=== PATIENT | female | born 1985 | race Two or more races ===

== ENCOUNTER 2016-11-10 10:27 | Inpatient (IN) | payer MEDICAID ==
[~2016-11-10] VITALS: Ht 154.9 cm; Wt 78.0 kg
[2016-11-10] VITALS (10 sets, daily range): BP systolic 93–121; BP diastolic 59–76
[~2016-11-10 10:27] MED LIST: Dexamethasone 4mg/ml vial ONE; Glycopyrrolate 0.2mg/ml 1ml Vial ONE; LR 1000ml ONE; Lidocaine 1% MPF 10mg/ml 5ml ONE; Midazolam 2mg/2ml Inj ONE; NS Irrig 1000ml ONE; Neostigmine 1mg/ml 10ml Inj ONE; Propofol 200mg/20ml IV ONE; Sterile Water Irrig 1000ml IRRIG ONE; Zemuron 50mg/5ml Inj IV ONE; fentaNYL 100 mcg/2 mL IV ONE
[2016-11-10] MEDS ORDERED: NKM (10:43)
[2016-11-10] MEDS ORDERED: DiphenhydrAMINE 50mg/ml Inj IVP ONE (10:45)
[2016-11-10] MEDS ORDERED: Morphine Sulfate 4mg/ml Inj IVP ONE (10:45)
[2016-11-10] MEDS ORDERED: Metoclopramide 10mg/2ml Inj IVP ONE (10:45)
--- NOTE | 2016-11-10 10:55 | Emergency Room Report ---
History of Present Illness General Chief Complaint: Abdominal Pain Source: Patient Present Illness HPI The patient was referred from her private doctor's office. She's been having right flank pain since last night. Constant and 10/10. Radiates to the right lower quadrant. She's been vomiting there Green material. She denies any fevers. Her doctors concerned about possible appendicitis. The patient has not had a period for one year. She is breast-feeding. She's had some loose stool. She denies any dysuria or hematuria. She's never had renal stones before. No URI sy, cough, chest pain, headache. She is worried about dx and also about whether will be able to care for daughter. Allergies: Coded Allergies: No Known Allergies (Unverified , 11/10/16) Patient History Past Medical History: see triage record Social History: Denies: smoking, alcohol use, drug use Social History Narrative Reviewed Nursing Documentation: PMH: Agreed, PSxH: Agreed Nursing Documentation-PMH Past Medical History: No Stated History Review of Systems All Other Systems: negative except mentioned in HPI Physical Exam Vital Signs Date Time Temp Pulse Resp B/P (MAP) Pulse Ox O2 Delivery O2 Flow Rate FiO2 11/10/16 10:37 98.8 82 18 107/73 97 Room Air Sp02 EP Interpretation: reviewed, normal General Appearance: well appearing, no apparent distress, GCS 15 Head: normocephalic Eyes: bilateral eye normal inspection, bilateral eye PERRL ENT: moist mucus membranes Neck: supple Respiratory: lungs clear, normal breath sounds Cardiovascular #1: regular rate, rhythm Cardiovascular #2: 2+ radial (R) Gastrointestinal: normal inspection, normal bowel sounds, no mass, non- distended, no rebound, guarding - RLQ and R flank, tenderness, overweight Musculoskeletal: back normal, gait/station normal, normal range of motion Neurologic: alert, oriented x3, grossly normal Psychiatric: anxious Skin: normal inspection, warm/dry Medical Decision Making Diagnostic Impression: Primary Impression: Acute appendicitis Qualified Codes: K35.89 - Other acute appendicitis Additional Impression: Normal breast feeding ER Course Patient presents with right flank pain. Differential includes gallstone, appendicitis, pyelonephritis, renal stone amongst others. Evaluation will be with labs including urinalysis and test and a CT is been ordered. This will be canceled it sure test is positive we will switch to an ultrasound. The patient will be given Reglan, Benadryl and morphine for pain at the moment. If her test is negative we can give her Toradol. Pain better with hydration and analgesia. Leukocytosis. CT + appendicitis. Calling surgeon. Antibiotics ordered. Admit med/OR Dr. Curran. Call Dr. Lacey for operation. Laboratory Tests Test 11/10/16 11:10 White Blood Count 16.2 K/UL (4.8-10.8) H Red Blood Count 5.16 M/UL (4.20-5.40) Hemoglobin 14.5 G/DL (12.0-16.0) Hematocrit 45.7 % (37.0-47.0) Mean Corpuscular Volume 88 FL (80-99) Mean Corpuscular Hemoglobin 28.1 PG (27.0-31.0) Mean Corpuscular Hemoglobin Concent 31.8 G/DL (32.0-36.0) L Red Cell Distribution Width 11.8 % (11.6-14.8) Platelet Count 364 K/UL (150-450) Mean Platelet Volume 6.3 FL (6.5-10.1) L Neutrophils (%) (Auto) % (45.0-75.0) Lymphocytes (%) (Auto) % (20.0-45.0) Monocytes (%) (Auto) % (1.0-10.0) Eosinophils (%) (Auto) % (0.0-3.0) Basophils (%) (Auto) % (0.0-2.0) Differential Total Cells Counted 100 Neutrophils % (Manual) 82 % (45-75) H Lymphocytes % (Manual) 9 % (20-45) L Monocytes % (Manual) 7 % (1-10) Eosinophils % (Manual) 0 % (0-3) Basophils % (Manual) 0 % (0-2) Band Neutrophils 2 % (0-8) Platelet Estimate Adequate Platelet Morphology Normal Red Blood Cell Morphology Normal Prothrombin Time 9.9 SEC (9.30-11.50) Prothrombin Time INR 0.9 (0.9-1.1) PTT 27 SEC (23-33) Urine Color Yellow Urine Appearance Clear Urine pH 8 (4.5-8.0) Urine Specific [place] 1.015 (1.005-1.035) Urine Protein Negative (NEGATIVE) Urine Glucose (UA) Negative (NEGATIVE) Urine Ketones 3+ (NEGATIVE) H Urine Occult Blood 2+ (NEGATIVE) H Urine Nitrite Negative (NEGATIVE) Urine Bilirubin Negative (NEGATIVE) Urine Urobilinogen Normal MG/DL (0.0-1.0) Urine Leukocyte Esterase Negative (NEGATIVE) Urine RBC 10-15 /HPF (0 - 2) H Urine WBC 0-2 /HPF (0 - 2) Urine Squamous Epithelial Cells Moderate /LPF (NONE/OCC) H Urine Bacteria Few /HPF (NONE) Urine Mucus Moderate /LPF (NONE/OCC) H Urine HCG, Qualitative Negative Sodium Level 141 mEQ/L (135-145) Potassium Level 3.9 mEQ/L (3.4-4.9) Chloride Level 102 mEQ/L (98-107) Carbon Dioxide Level 24 mEQ/L (20-30) Anion Gap 15 (5-15) Blood Urea Nitrogen 10 mg/dL (7-23) Creatinine 0.8 mg/dL (0.5-0.9) Estimate Glomerular Filtration Rate > 60 mL/min (>60) Glucose Level 117 mg/dL (74-106) H Calcium Level 9.5 mg/dL (8.6-10.2) Total Bilirubin 0.4 mg/dL (0.0-1.2) Aspartate Amino Transferase (AST) 18 U/L (5-40) Alanine Aminotransferase (ALT) 17 U/L (3-33) Alkaline Phosphatase 132 U/L (35-104) H Total Protein 7.7 g/dL (6.6-8.7) Albumin 4.6 g/dL (3.5-5.2) Globulin 3.1 g/dL Albumin/Globulin Ratio 1.4 (1.0-2.7) Lipase 19 U/L (< 60) EKG Diagnostic Results Rate: normal Rhythm: NSR ST Segments: no acute changes Rhythm Strip Diag. Results EP Interpretation: yes Rhythm: NSR, no PVC's, no ectopy CT/MRI/US Diagnostic Results CT/MRI/US Diagnostic Results : Imaging Test Ordered: abd pelvis Impression acute appendicitis Status: improved Disposition: ADMITTED INPATIENT Condition: Serious Yash Marques M.D. Nov 10, 2016 10:55
[2016-11-10 11:26] LABS: MEAN CORPUSCULAR HEMOGLOBIN 28.1 PG (27.0-31.0); MEAN CORPUSCULAR HGB CONC 31.8 G/DL (32.0-36.0); MEAN CORPUSCULAR VOLUME 88 FL (80-99); MEAN PLATELET VOLUME 6.3 FL (6.5-10.1); PLATELET COUNT 364 K/UL (150-450); RED BLOOD COUNT 5.16 M/UL (4.20-5.40); RED CELL DISTRIBUTION WIDTH 11.8 % (11.6-14.8); WHITE BLOOD COUNT 16.2 K/UL (4.8-10.8)
[2016-11-10 11:27] LABS: APPEARANCE,URINE CLEAR; KETONES,URINE 3+ (NEGATIVE); LEUKOCYTE ESTERASE ,URINE NEGATIVE (NEGATIVE); NITRITE,URINE NEGATIVE (NEGATIVE); PH,URINE 8 (4.5-8.0); PROTEIN,URINE NEGATIVE (NEGATIVE); UROBILINOGEN,URINE NORMAL MG/DL (0.0-1.0)
[2016-11-10 11:37] LABS: BACTERIA,URINE FEW /HPF; MUCUS,URINE MODERATE /LPF (NONE/OCC); SQUAMOUS EPITHELIAL CELL,UR MODERATE /LPF (NONE/OCC); WBC,URINE 0-2 /HPF (0 - 2)
[2016-11-10 11:38] LABS: INR 0.9 (0.9-1.1); PROTHROMBIN TIME 9.9 SEC (9.30-11.50)
[2016-11-10 11:45] LABS: BAND NEUTROPHILS % (MANUAL) 2 % (0-8); LYMPHOCYTES % (MANUAL) 9 % (20-45); NEUTROPHILS % (MANUAL) 82 % (45-75); PLATELET MORPHOLOGY NORMAL; TOTAL CELLS COUNTED 100
[2016-11-10] MEDS ORDERED: Ketorolac 30mg Inj IV ONE (11:45)
[2016-11-10 11:46] LABS: ALANINE AMINOTRANSFERASE 17 U/L (3-33); ALBUMIN/GLOBULIN RATIO 1.4 (1.0-2.7); ANION GAP 15 (5-15); ASPARTATE AMINO TRANSFERASE 18 U/L (5-40); BASOPHILS % (MANUAL) 0 % (0-2); CALCIUM 9.5 mg/dL (8.6-10.2); CARBON DIOXIDE 24 mEQ/L (20-30); CHLORIDE 102 mEQ/L (98-107); CREATININE 0.8 mg/dL (0.5-0.9); EOSINOPHILS % (MANUAL) 0 % (0-3); GLOMERULAR FILTRATION RATE > 60 mL/min (>60); HEMOLYSIS 4; LIPASE 19 U/L (< 60); PLATELET ESTIMATE ADEQUATE; POTASSIUM 3.9 mEQ/L (3.4-4.9); SODIUM 141 mEQ/L (135-145); TOTAL PROTEIN 7.7 g/dL (6.6-8.7)
--- NOTE | 2016-11-10 13:34 | Diagnostic Imaging Report ---
Indication: Abdominal pain Technique: Continuous helical transaxial imaging of the abdomen and pelvis was obtained from the lung bases to the pubic symphysis during intravenous contrast administration. Coronal 2-D reformats were also obtained. Study obtained in a Siemens sensation [address] Total Dose length Product (DLP): [address] Dose Index Volume (CTDIvol): 20 mGy Comparison: None Findings: The appendix is identified in the right lower quadrant. Appendiceal diameter is abnormally large measuring about 15 mm. There is soft tissue stranding of the periappendiceal fat. Findings are consistent with acute appendicitis. There is no evidence of abscess. Interestingly there is air within the lumen of the appendix. The base of the appendix contains slightly high attenuation heterogeneous focus which may be inspissated stool or calcium i.e. appendicolith. There is no free fluid or free air. There is no evidence of bowel obstruction. Both ovaries are seen and appear normal. The uterus is unremarkable. There is no hydronephrosis. Urinary bladder is unremarkable. A few mesenteric nodes are demonstrated in the right lower quadrant of the abdomen. These are likely reactive/inflammatory nodes. The liver, spleen, kidneys, adrenal glands and pancreas appear normal. There is minimal posterior basilar atelectasis. There is probable sludge in the gallbladder given the differential density with slightly increased density in the dependent part of the gallbladder. Impression: Acute appendicitis. No evidence of rupture. No abscess. Mild posterior basilar atelectasis. The CT scanner at [facility] is accredited by the [employer] and the scans are performed using dose optimization techniques as appropriate to a performed exam including Automatic Exposure control.
[2016-11-10] MEDS ORDERED: Cefepime HCl 1 GM in D5W 55 ML IVPB ONE (14:15)
[2016-11-10] MEDS ORDERED: Cefepime 1gm vial ONE (14:26)
--- NOTE | 2016-11-10 14:32 | Pre-Procedure Note/Attestation ---
Pre-Procedure Note/Attestation Complete Prior to Procedure Planned Procedure: not applicable Procedure Narrative: Laparoscopic appendectomy possible open Appendectomy Indications for Procedure Pre-Operative Diagnosis: Acute appendicitis Attestation I attest that I discussed the nature of the procedure; its benefits; risks and complications; and alternatives (and the risks and benefits of such alternatives ), prior to the procedure, with the patient (or the patient's legal personal financial representative). I attest that, if there was a reasonable possibility of needing a blood transfusion, the patient (or the patient's legal personal financial representative) was given the [facility] standardized written summary, pursuant to the Ernesto Deja Blood Safety Act ([place] Health and Safety Code # 1645, as amended). I attest that I re-evaluated the patient just prior to the surgery and that there has been no change in the patient's H&P, except as documented below: AMADOU LIRA Nov 10, 2016 14:31
[2016-11-10] MEDS ORDERED: Bupivacaine 0.25% Inj 30ml INJ ONE (15:23)
[2016-11-10] MEDS ORDERED: Bacitracin 50000 Units Vial ONE ×2 (15:23→17:23)
--- NOTE | 2016-11-10 16:39 | Anethesia Preoperative Eval ---
Anesthesia Pre-op PMH/ROS General Date of Evaluation: Nov 10, 2016 Time of Evaluation: 15:41 Anesthesiologist: Seema ASA Score: ASA 2 - Emergency Mallampati Score Class I : Soft palate, uvula, fauces, pillars visible Class II: Soft palate, uvula, fauces visible Class III: Soft palate, base of uvula visible Class IV: Only hard plate visible Mallampati Classification: Class II Surgeon: Abhijit Diagnosis: Acute Appendicitis Surgical Procedure: Laparoscopic Appendectomy Anesthesia History: none Family History: no anesthesia problems Allergies: Coded Allergies: No Known Allergies (Unverified , 11/10/16) Medications: see eMAR Past Medical History Other: obesity - BMI 33 Anesthesia Pre-op Phys. Exam Physician Exam Last Vital Signs Date Time Temp Pulse Resp B/P (MAP) Pulse Ox O2 Delivery O2 Flow Rate FiO2 11/10/16 15:35 98 18 124/78 100 Room Air 11/10/16 13:35 98.1 Constitutional: NAD Neurologic: CN 2-12 intact Cardiovascular: RRR Respiratory: CTA Gastrointestinal: S/NT/ND Airway Exam Mallampati Score: Class II MO: full ROM: full Teeth: intact Anesthesia Pre-op A/P Labs Hematology Test 11/10/16 11:10 White Blood Count 16.2 K/UL (4.8-10.8) H Red Blood Count 5.16 M/UL (4.20-5.40) Hemoglobin 14.5 G/DL (12.0-16.0) Hematocrit 45.7 % (37.0-47.0) Mean Corpuscular Volume 88 FL (80-99) Mean Corpuscular Hemoglobin 28.1 PG (27.0-31.0) Mean Corpuscular Hemoglobin Concent 31.8 G/DL (32.0-36.0) L Red Cell Distribution Width 11.8 % (11.6-14.8) Platelet Count 364 K/UL (150-450) Mean Platelet Volume 6.3 FL (6.5-10.1) L Neutrophils (%) (Auto) % (45.0-75.0) Lymphocytes (%) (Auto) % (20.0-45.0) Monocytes (%) (Auto) % (1.0-10.0) Eosinophils (%) (Auto) % (0.0-3.0) Basophils (%) (Auto) % (0.0-2.0) Differential Total Cells Counted 100 Neutrophils % (Manual) 82 % (45-75) H Lymphocytes % (Manual) 9 % (20-45) L Monocytes % (Manual) 7 % (1-10) Eosinophils % (Manual) 0 % (0-3) Basophils % (Manual) 0 % (0-2) Band Neutrophils 2 % (0-8) Platelet Estimate Adequate Platelet Morphology Normal Red Blood Cell Morphology Normal Coagulation Test 11/10/16 11:10 Prothrombin Time 9.9 SEC (9.30-11.50) Prothromb Time International Ratio 0.9 (0.9-1.1) Activated Partial Thromboplast Time 27 SEC (23-33) Chemistry Test 11/10/16 11:10 Sodium Level 141 mEQ/L (135-145) Potassium Level 3.9 mEQ/L (3.4-4.9) Chloride Level 102 mEQ/L (98-107) Carbon Dioxide Level 24 mEQ/L (20-30) Anion Gap 15 (5-15) Blood Urea Nitrogen 10 mg/dL (7-23) Creatinine 0.8 mg/dL (0.5-0.9) Estimat Glomerular Filtration Rate > 60 mL/min (>60) Glucose Level 117 mg/dL (74-106) H Calcium Level 9.5 mg/dL (8.6-10.2) Total Bilirubin 0.4 mg/dL (0.0-1.2) Aspartate Amino Transf (AST/SGOT) 18 U/L (5-40) Alanine Aminotransferase (ALT/SGPT) 17 U/L (3-33) Alkaline Phosphatase 132 U/L (35-104) H Total Protein 7.7 g/dL (6.6-8.7) Albumin 4.6 g/dL (3.5-5.2) Globulin 3.1 g/dL Albumin/Globulin Ratio 1.4 (1.0-2.7) Lipase 19 U/L (< 60) Urine Test Test 11/10/16 11:10 Urine HCG, Qualitative Negative Risk Assessment & Plan Assessment: ASA 2E Status Change Before Surgery: No Pre-Antibiotics Dru Grams Ancef IV Given Within 1 Hr of Incision: Yes Time Given: 16:11 Arthur Stephenson MD Nov 10, 2016 16:39
--- NOTE | 2016-11-10 16:42 | Immediate Post-Op Evaluation ---
Immediate Post-Op Evalulation Immediate Post-Op Evalulation Procedure: Laparoscopic Appendectomy Date of Evaluation: Nov 10, 2016 Time of Evaluation: 17:30 IV Fluids: 700 LR Blood Products: 0 Estimated Blood Loss: 10 Urinary Output: 100 Blood Pressure Systolic: 121 Blood Pressure Diastolic: 76 Pulse Rate: 78 Respiratory Rate: 16 O2 Sat by Pulse Oximetry: 100 Temperature (Fahrenheit): 97.5 Pain Score (1-10): 2 Nausea: No Vomiting: No Complications 0 Patient Status: awake, reacts, patent, extubated, none Hydration Status: adequate Dru Grams Ancef IV Given Within 1 Hr of Incision: Yes Time Given: 16:11 Arthur Stephenson MD Nov 10, 2016 16:42
--- NOTE | 2016-11-10 16:44 | 48 Hour Post Anesthesia Eval ---
Post Anesthesia Evaluation Procedure: Laparoscopic Appendectomy Date of Evaluation: Nov 10, 2016 Time of Evaluation: 19:43 Blood Pressure Systolic: 108 0: 74 Pulse Rate: 73 Respiratory Rate: 18 Temperature (Fahrenheit): 98.2 O2 Sat by Pulse Oximetry: 100 Airway: patent Nausea: No Vomiting: No Pain Intensity: 2 Hydration Status: adequate Cardiopulmonary Status: Stable Mental Status/LOC: patient returned to baseline Follow-up Care/Observations: 0 Post-Anesthesia Complications: 0 Follow-up care needed: N/A Arthur Stephenson MD Nov 10, 2016 16:44
[2016-11-10] MEDS ORDERED: DiphenhydrAMINE 50mg/ml Inj IVP PRN (16:45)
[2016-11-10] MEDS ORDERED: oxyCODONE HCL/Acetaminophen 5/325mg ORAL PRN (16:45)
[2016-11-10] MEDS ORDERED: Ketorolac 60mg Inj IV PRN (16:45)
[2016-11-10] MEDS ORDERED: Ketorolac 30mg Inj IV PRN (16:45)
[2016-11-10] MEDS ORDERED: Hydromorphone 0.5mg/0.5ml inj IVP PRN ×2 (16:45→21:00)
[2016-11-10] MEDS ORDERED: fentaNYL 100 mcg/2 mL IV PRN (16:45)
[2016-11-10] MEDS ORDERED: LORazepam Inj 2mg/ml 1ml IV PRN (16:45)
[2016-11-10] MEDS ORDERED: Midazolam 2mg/2ml Inj IVP PRN (16:45)
[2016-11-10] MEDS ORDERED: Norco 7.5mg/325mg tab ORAL PRN (16:45)
[2016-11-10] MEDS ORDERED: Metoclopramide 10mg/2ml Inj IVP PRN ×2 (16:45→21:00)
[2016-11-10] MEDS ORDERED: Atropine Inj 1mg/10ml Syr IV PRN (16:45)
[2016-11-10] MEDS ORDERED: Meperidine 25mg/0.5ml Inj (FOR RIGORS ONLY) IV PRN (16:45)
[2016-11-10] MEDS ORDERED: Norco 5mg/325mg tab ORAL PRN (16:45)
[2016-11-10] MEDS ORDERED: Acetaminophen (Non formulary) 1,000 MG/100 ML ML IV SCH (17:00)
--- NOTE | 2016-11-10 17:12 | Brief Operative Note ---
Immediate Post Operative Note Operative Note Pre-op Diagnosis: Acute appendicitis Procedure: Lap Appy Post-op Diagnosis: Acute Appy Post-op Diagnosis: same as pre-op Findings: consistent w/pre-op dx studies Surgeon: Zhang Boat Patcher Plastic: jermaine Anesthesiologist: Dr. Stephenson Anesthesia: general Specimen: yes Complications: none Condition: stable Fluids: Per anesthesiologist Estimated Blood Loss: minimal Drains: none Implant(s) used?: No AMADOU LIRA Nov 10, 2016 17:12
[2016-11-10] MEDS ORDERED: LR 1000ml 1,000 ML IVLG SCH (18:00)
[2016-11-10] MEDS ORDERED: Acetaminophen 650 MG SUPP RECTAL PRN (21:00)
[2016-11-10] MEDS ORDERED: HYDROmorphone 1mg/ml Carpuject IVP PRN (21:00)
[2016-11-10] MEDS: D5 1/2NS w/KCl 20mEq 1,000 ML IV SCH (22:21)
[2016-11-10] MEDS: Famotidine 20 MG/ 2ML VIAL IVP SCH (22:21)
[2016-11-10] MEDS: Piperacillin/Tazobactam 3.375 GM in NS 110 ML IVPB SCH (22:21)
[2016-11-11 00:05] VITALS: BP 113/61
[2016-11-11 04:30] VITALS: BP 110/71
--- NOTE | 2016-11-11 05:00 | Consultation ---
DATE OF CONSULTATION: 11/10/2016 PREOPERATIVE CONSULTATION CONSULTING PHYSICIAN: Hemal Lacey M.D. REFERRING PHYSICIAN: Yash Marques M.D. in the emergency room. REASON FOR CONSULTATION: Abdominal pain. HISTORY OF PRESENT ILLNESS: This is a 31-year-old female, who presented to emergency room complaining of abdominal pain since last night. The pain was initially in the epigastrium and then it localized at right lower quadrant. This pain has been associated with nausea and vomiting. She had a normal bowel movement this morning. She denies fever, cough, dysuria, or frequency. She has been in the last one year and she did not have any periods. She denies any vaginal discharge. PAST MEDICAL HISTORY: She denies allergies, asthma, diabetes, hypertension, cardiac or renal diseases. PAST SURGICAL HISTORY: Include one year ago. MEDICATIONS: None. SOCIAL HISTORY: The patient is a 31-year-old female, who lives at the with one child. She is unemployed and denies smoking and drinking. REVIEW OF SYSTEMS: Noncontributory. PHYSICAL EXAMINATION: GENERAL: The patient appeared to be a well-developed, well-nourished, and moderately obese 31-year-old female, lying on the gurney, complaining of abdominal pain. HEENT: Head is normocephalic and atraumatic. Eyes, pupils are equal, round, and reactive to light. Mouth is clear. NECK: There is no palpable thyromegaly or adenopathy. CHEST: Clear to auscultation and percussion. HEART: There is no gallop or murmur. S1 and S2 are within normal limits. ABDOMEN: Soft and flat with tenderness, guarding, and rebound tenderness at the right lower quadrant. She has a scar of the transverse suprapubic incision. There is no palpable organomegaly. Bowel sounds are audible. GENITAL: Deferred. EXTREMITIES: Within normal limits. LABORATORY DATA: CBC has shown a WBC of 16,000 with a left shift. Chemistry is normal. The CAT scan of the abdomen has been interpreted as acute appendicitis. ASSESSMENT: Acute appendicitis. PLAN: After rehydration, the patient will undergo a laparoscopic appendectomy, possible open appendectomy. The risks and benefits have been explained to her. She understood and granted the consent. Hemal Lacey M.D. DR: ANTHONY JOB#: [id number] CC:
[2016-11-11] MEDS: D5 1/2NS w/KCl 20mEq 1,000 ML IV SCH (05:38)
[2016-11-11] MEDS: Piperacillin/Tazobactam 3.375 GM in NS 110 ML IVPB SCH ×2 (05:38→14:00)
--- NOTE | 2016-11-11 06:00 | History and Physical Report ---
DATE OF ADMISSION: 11/10/2016 CHIEF COMPLAINT AND REASON FOR HOSPITALIZATION: The patient is a 31-year-old lady admitted with appendicitis. HISTORY OF PRESENT ILLNESS: The patient presented to the emergency room after seeing her private doctor with right-sided abdominal pain. Evaluation was consistent with clinical pancreatitis. She was given symptomatic care and was already brought to surgery for appendicitis prior to my visiting her. She has generally been in good health. PAST SURGICAL HISTORY: section once. MEDICATIONS: None. ALLERGIES: None known. SYSTEM REVIEW: Negative except for the current abdominal pain and a complete system review was done. PHYSICAL EXAMINATION: VITAL SIGNS: Temperature 98.5, pulse 67, respirations 20, and blood pressure 111/70. BMI 32.5. HEENT: Sclerae nonicteric. Ocular motions intact in all directions. Oral mucosa is moist. NECK: No adenopathy or thyroid enlargement. LUNGS: Clear. HEART: Regular rhythm. No murmur. ABDOMEN: Soft, nondistended, very mild tenderness in the right lower quadrant post surgery. EXTREMITIES: No edema, cyanosis, or clubbing. LABORATORY DATA: Labs are reviewed and are unremarkable except for a white count of 16.2. IMPRESSION: 1. Acute appendicitis. 2. Negative prior medical history. PLAN: The patient is stable post surgery. She will be observed with postoperative care regarding appendicitis and I will assess if there are any new issues on further examination. Danny Curran M.D. DR: Soto JOB#: [id number] CC:
[2016-11-11 06:54] LABS: BASOPHILS % (AUTO) 0.2 % (0.0-2.0); MEAN CORPUSCULAR HEMOGLOBIN 29.4 PG (27.0-31.0); MEAN CORPUSCULAR HGB CONC 33.2 G/DL (32.0-36.0); MEAN CORPUSCULAR VOLUME 89 FL (80-99); MEAN PLATELET VOLUME 6.8 FL (6.5-10.1); NEUTROPHILS % (AUTO) 84.8 % (45.0-75.0); PLATELET COUNT 322 K/UL (150-450); RED BLOOD COUNT 4.47 M/UL (4.20-5.40); RED CELL DISTRIBUTION WIDTH 11.9 % (11.6-14.8); WHITE BLOOD COUNT 11.3 K/UL (4.8-10.8)
[2016-11-11 07:06] LABS: ANION GAP 12 (5-15); CARBON DIOXIDE 22 mEQ/L (20-30); CHLORIDE 102 mEQ/L (98-107); CREATININE 0.7 mg/dL (0.5-0.9); GLOMERULAR FILTRATION RATE > 60 mL/min (>60); HEMOLYSIS 6; POTASSIUM 4.3 mEQ/L (3.4-4.9); SODIUM 136 mEQ/L (135-145)
[2016-11-11] MEDS: Famotidine 20 MG/ 2ML VIAL IVP SCH (08:01)
[2016-11-11 08:10] VITALS: BP 101/63
[2016-11-11] MEDS ORDERED: Tubing IV Secondary IV ONE (09:52)
[2016-11-11] MEDS ORDERED: NS 275ml ONE (09:52)
[2016-11-11 11:50] VITALS: BP 89/59
--- NOTE | 2016-11-11 13:55 | General Surgery Progress Note ---
General Surgery-Progress Note Subjective Procedure Performed Lap Appy Symptoms: improved, BM Objective Last 24 Hour Vital Signs Date Time Temp Pulse Resp B/P (MAP) Pulse Ox O2 Delivery O2 Flow Rate FiO2 11/11/16 11:50 97.9 60 20 89/59 96 Room Air 11/11/16 08:30 97.9 11/11/16 08:10 97.9 64 19 101/63 97 Nasal Cannula 2.0 11/11/16 04:30 98.1 74 20 110/71 96 Nasal Cannula 3.0 11/11/16 00:05 98.9 70 19 113/61 98 Nasal Cannula 3.0 11/10/16 21:14 99.1 67 19 110/68 98 Nasal Cannula 3.0 11/10/16 18:20 98.5 67 20 111/70 100 Nasal Cannula 3.0 11/10/16 18:05 72 21 121/66 100 Nasal Cannula 3.0 11/10/16 17:50 65 21 111/70 100 Nasal Cannula 3.0 11/10/16 17:40 66 22 108/71 100 Simple Mask 6.0 11/10/16 17:29 72 22 109/73 100 Simple Mask 6.0 11/10/16 17:24 74 23 115/74 100 Simple Mask 6.0 11/10/16 17:21 73 18 100 11/10/16 17:20 78 16 100 11/10/16 17:19 97.5 79 26 121/76 100 Simple Mask 6.0 11/10/16 15:35 98 18 124/78 100 Room Air I&O Intake and Output 11/11/16 11/12/16 19:00 07:00 Intake Total 355.0 ml Balance 355.0 ml IV Total 355.0 ml # Voids 1 # Bowel Movements 2 Dressing: dry Drains: none Respiratory: clear Abdomen: soft, non-tender, present bowel sounds Extremities: no tenderness Laboratory Tests Test 11/11/16 05:30 White Blood Count 11.3 K/UL (4.8-10.8) H Red Blood Count 4.47 M/UL (4.20-5.40) Hemoglobin 13.2 G/DL (12.0-16.0) Hematocrit 39.7 % (37.0-47.0) Mean Corpuscular Volume 89 FL (80-99) Mean Corpuscular Hemoglobin 29.4 PG (27.0-31.0) Mean Corpuscular Hemoglobin Concent 33.2 G/DL (32.0-36.0) Red Cell Distribution Width 11.9 % (11.6-14.8) Platelet Count 322 K/UL (150-450) Mean Platelet Volume 6.8 FL (6.5-10.1) Neutrophils (%) (Auto) 84.8 % (45.0-75.0) H Lymphocytes (%) (Auto) 12.0 % (20.0-45.0) L Monocytes (%) (Auto) 3.0 % (1.0-10.0) Eosinophils (%) (Auto) 0.0 % (0.0-3.0) Basophils (%) (Auto) 0.2 % (0.0-2.0) Sodium Level 136 mEQ/L (135-145) Potassium Level 4.3 mEQ/L (3.4-4.9) Chloride Level 102 mEQ/L (98-107) Carbon Dioxide Level 22 mEQ/L (20-30) Anion Gap 12 (5-15) Blood Urea Nitrogen 8 mg/dL (7-23) Creatinine 0.7 mg/dL (0.5-0.9) Estimat Glomerular Filtration Rate > 60 mL/min (>60) Glucose Level 159 mg/dL (74-106) H Calcium Level 9.0 mg/dL (8.6-10.2) Assessment Post-op Diagnosis Acute Appy Plan Additional Comments Discharge to home AMADOU LIRA Nov 11, 2016 13:55
--- NOTE | 2016-11-11 13:57 | Discharge Instructions ---
Discharge Instructions Discharge Instructions Follow up with: my office in one week Diet: full liquid Additional Diet Information: advance to regular in AM Activity: as tolerated For Surgical Patients May shower: Yes For Congestive Heart Failure Reminder Report to your physician any weight gain of 5 pounds or more in one week. AMADOU LIRA Nov 11, 2016 13:57
[2016-11-11] MEDS ORDERED: CEPHALEXIN500 MG ORAL (14:46)
[2016-11-11] MEDS ORDERED: TRAMADOL HCL50 MG ORAL (14:47)
--- NOTE | 2016-11-11 23:00 | Discharge Summary ---
DATE OF ADMISSION: 11/10/2016 DATE OF DISCHARGE: 11/11/2016 PERTINENT HISTORY: The patient presents with right lower quadrant pain and the exam and studies were consistent with acute appendicitis. PERTINENT PHYSICAL FINDINGS: I saw the patient postoperatively she had mild right lower quadrant tenderness. COURSE IN THE HOSPITAL: The patient had laparoscopic appendectomy by Dr. Lacey. The patient tolerated the surgery well and no perioperative complications. She was started on clear liquids The pain was controlled and she was discharged home in stable condition. FINAL DIAGNOSIS: Acute appendicitis. DISCHARGE DISPOSITION: Medications as per Dr. Lacey. FOLLOWUP: Follow up with primary care physician Dr. Lacey. Danny Curran M.D. DR: EDIL JOB#: [id number] CC:
--- NOTE | 2016-11-20 17:00 | Operative Note - Dictated ---
DATE OF OPERATION: 11/10/2016 PREOPERATIVE DIAGNOSIS: Acute appendicitis. POSTOPERATIVE DIAGNOSIS: Acute appendicitis. OPERATION: Laparoscopic appendectomy. COMPLICATION: None. SURGEON: Hemal Lacey M.D. CONCRETE BOOM OPERATOR: None. ANESTHESIA: General with endotracheal tube. ANESTHESIOLOGIST: Arthur Stephenson M.D. INDICATION: This is a 31-year-old female, who presented with abdominal pain and vomiting since last night. She stated that the pain was initially located at the epigastrium and then it localized at right lower quadrant. This pain was associated with nausea and vomiting. Physical examination showed tenderness, rebound tenderness, and guarding at right lower quadrant. CBC showed a WBC of 16,000 with a left shift and the CAT scan of the abdomen was interpreted as acute appendicitis. DESCRIPTION OF PROCEDURE: The patient was placed supine on the operating table and after general anesthesia with the endotracheal tube, the abdomen was properly prepped and draped. Initially, a small prior incision was given above the umbilicus, through which a Veress needle was introduced into the intraperitoneal cavity. This cavity was insufflated up to 15 mmHg and then the Veress needle was removed and a 5 mm trocar was placed in the intraperitoneal cavity through the incision above the umbilicus. The laparoscope and camera were introduced into the intraperitoneal cavity through the trocar above the umbilicus. Under direct vision, a 5 mm trocar was placed at the suprapubic area and a 12 mm trocar was placed at the left lower quadrant of the abdomen. Initially, a rapid exploration was performed, which showed diaphragms to be normal. The part of the stomach what could be seen was normal. The liver had mild fatty infiltrate. The bowels were covered with omentum. The exploration of the right lower quadrant cavity was performed and cecum was identified. Further exploration was performed, and the appendix and the mesoappendix were identified and isolated. The appendix showed acute inflammation, especially in the distal half. Initially, the mesoappendix was ligated and transected with the help of the REKHA stapler, and then the appendix was ligated and transected at the base of the appendix with the help of the REKHA stapler. The appendix was removed from the intraperitoneal cavity through the incision at the left lower quadrant of the abdomen with the help of the Endopouch. After removal of the appendix, the intraperitoneal cavity was thoroughly irrigated, especially the right paracolic gutter and the pelvis. We copiously irrigated with antibiotic solution. After the irrigation, another exploration was performed, especially the pelvis, which failed to show any bleeding or complication. The trocars were removed under direct vision. The incisions were infiltrated with total 30 mL of Marcaine 0.25%. The subcutaneous tissue was approximated with 4-0 chromic and the skin incisions were approximated with running subcuticular suture of 4-0 chromic. The patient tolerated the procedure very well and was transferred to recovery room in stable condition and extubated. The sponge and needle count correct. ESTIMATED BLOOD LOSS: 5 mL. CONDITION OF THE PATIENT AT THE END OF PROCEDURE: Stable. Hemal Lacey M.D. DR: LESA JOB#: [id number] CC:
== END 2016-11-11 15:15 | disposition home or self-care (01) | DRG 225 ==
LOC: EMR 11:44 → EDBEDREQ 15:12 → SUR 15:27 → 3E 18:45 → SUR 20:30 → 3E 21:05
PROC: 0DTJ4ZZ Resection of Appendix, Percutaneous Endoscopic Approach (ICD-10-PCS; principal; 2016-11-10 16:00)
DX: K35.80 Unspecified acute appendicitis (principal)
CPT/HCPCS: 36415; 74177; 80048; 80053; 81003; 81025; 83690; 85007; 85025; 85610; 85730; 86900; 86901; 94003; 94150; 99285; J2250; J2405; J2710; J2765